=== PATIENT | male | born 1995 | race Caucasian/White ===

== ENCOUNTER 2018-01-02 16:55 | Emergency (ER) | payer MEDICAID ==
[2018-01-02 17:02] VITALS: RESP 18
[2018-01-02] MEDS ORDERED: levETIRAcetam 1,000 MG in Sodium Chloride 0.9% 100 ML IVPB STA (17:20)
[2018-01-02] MEDS ORDERED: Sodium Chloride 0.9% 1,000 ML IV STA ×3 (17:20→19:56)
[2018-01-02 17:39] LABS: BASO # 0.1 K/uL (0.0-0.2); BASO % 0.4 % (0.0-2.0); EOS # 0.5 K/uL (0.0-0.7); EOS % 2.1 % (0.0-4.0); HEMOGLOBIN 15.3 g/dL (12.0-18.0); LYMPH # 10.1 K/uL (1.0-4.3); MEAN CELL VOLUME 92.6 fl (80.0-94.0); MEAN CORPUSCULAR HEMOGLOBIN 29.4 pg (27.0-31.0); MEAN CORPUSCULAR HGB CONC 31.7 g/dL (33.0-37.0); MEAN PLATELET VOLUME 9.8 fl (7.2-11.7); MONO # 1.8 K/uL (0.0-0.8); MONO % 8.1 % (0.0-10.0); NEUT # 9.9 K/uL (1.8-7.0); NEUT % 44.4 % (50.0-75.0); RBC 5.2 Mil/uL (4.40-5.90); RED CELL DISTRIBUTION WIDTH 13.1 % (11.5-14.5); WHITE BLOOD COUNT 22.4 K/uL (4.8-10.8)
--- NOTE | 2018-01-02 17:54 | ED PDOC ---
HPI: Seizure <Garland - Last Filed: 01/04/18 14:14> <IsabelAbril - Last Filed: 01/04/18 15:06> Time Seen by Provider: 01/02/18 17:09 Chief Complaint (Nursing): Seizure Additional Complaint(s): 22 yo male pmhx seizure disorder brought in by EMS for 2 episodes of seizures this afternoon. Pt reports he was sitting at the his campus ([facility]) and start to seize. Pt reports he takes Keppra 1500mg BID but missed his doses last night and this morning. Reports feeling nauseous and vomited in the ED. Denies hitting head, bleeding from mouth, urinary or fecal incontinence. Neurologist: Dr. Coel Almaguer (Sultan Nimesh) Supervising Attending Note - Supervising Attending Note The Documented history was done by the: Physician Lpc The documented physical exam was done by the: Physician Lpc - Attestation: I have personally seen and examined this patient.: Yes I have fully participated in the care of the patient.: Yes I have reviewed all pertinent clinical information, including history, physical exam and plan: Yes <IsabelAbril Bobbi - Last Filed: 01/04/18 15:06> Past Medical History - Medical History PMH: Seizures - Surgical History Surgical History: No Surg Hx - Family History Family History: States: No Known Family Hx - Social History Current smoker - smoking cessation education provided: No Alcohol: None Drugs: Denies <Sultan Nimesh - Last Filed: 01/04/18 14:14> <Abril Hall Bobbi - Last Filed: 01/04/18 15:06> Vital Signs: Last Vital Signs Temp 98.0 F 01/03/18 01:07 Pulse 86 01/03/18 01:07 Resp 18 01/03/18 01:07 BP 117/80 01/03/18 01:07 Pulse Ox 96 01/04/18 14:16 - Home Medications Home Medications: Ambulatory Orders Medication Instructions Recorded Levetiracetam [Levetiracetam] 1,000 mg PO Q12H 01/02/18 levETIRAcetam [Keppra] 500 mg PO Q12H 01/02/18 Levetiracetam [Keppra] 1,500 mg PO BID #40 tablet 01/03/18 - Allergies Allergies/Adverse Reactions: Allergies Allergy/AdvReac Type Severity Reaction Status Date / Time No Known Allergies Allergy Verified 08/13/15 19:20 Review of Systems Constitutional: Negative for: Fever, Chills Cardiovascular: Negative for: Chest Pain Respiratory: Negative for: Cough, Shortness of Breath Gastrointestinal: Negative for: Abdominal Pain Neurological: Negative for: Confusion, Headache <Sultan Nimesh - Last Filed: 01/04/18 14:14> Physical Exam - Physical Exam Appears: Positive for: Uncomfortable Head Exam: Positive for: ATRAUMATIC, NORMAL INSPECTION, NORMOCEPHALIC ENT: Positive for: Other (No tongue laceration seen) Neck: Positive for: Normal Cardiovascular/Chest: Positive for: Regular Rate, Rhythm Respiratory: Positive for: Normal Breath Sounds. Negative for: Crackles, Wheezing Gastrointestinal/Abdominal: Positive for: Bowel Sounds, Soft. Negative for: Tenderness Extremity: Positive for: Normal ROM Neurologic/Psych: Positive for: Alert, Oriented. Negative for: Motor/Sensory Deficits <Sultan Nimesh - Last Filed: 01/04/18 14:14> - Laboratory Results Result Diagrams: 01/02/18 20:37 01/02/18 20:37 - ECG O2 Sat by Pulse Oximetry: 96 <Sultan Nimesh - Last Filed: 01/04/18 14:14> - Laboratory Results Result Diagrams: 01/02/18 20:37 01/02/18 20:37 - Critical Care Total Time (In Min): 45 <Abril Hall - Last Filed: 01/04/18 15:06> - Progress ED Course And Treament: Assessment: 22 yo male hx seizure disorder presents to ED for seizure episodes Plan: Keppra 1500mg Klonopin 1 mg Zofran 4mg IVP IV NS 1000CC BOLUS cbc cmp cpk keppra level UA finger stick glucose Attempt was made to contact w/ pt's neurologist Dr. Almaguer. Message was left with the answering service to contact [facility] ED. Case d/w ED attending physician Dr. Hall (Sultan Nimesh) Medical Decision Making <Sultan Nimesh - Last Filed: 01/04/18 14:14> <Abril Hall - Last Filed: 01/04/18 15:06> Medical Decision Makin:00 Case discussed with Mary ([employer] @ Dr. Krishnamurthy office) who discussed case with Dr. Sandoval, recommends Keppra 1500 mg IV and Clonazepam 1 mg PO now, then Keppra 1500 mg PO @ 10:30 PM. If feeling better and tolerating PO, can be discharged home. (Abril Hall) Disposition - Disposition Disposition Time: 01:15 (Pt was discharged on 01/03/18) <Sultan Nimesh - Last Filed: 01/04/18 14:14> - Disposition Disposition: Transfer of Care Disposition Time: 21:00 Patient Signed Over To: Avi Tillman III <Abril Hall - Last Filed: 01/04/18 15:06> - Clinical Impression Clinical Impression: Generalized seizure - Disposition Condition: STABLE Additional Instructions: See your neurologist as directed. Take your keppra medication everyday 2x daily. Return to ER for any fever, worse or new symptoms. Do not drive a car until cleared by your neurologist. Prescriptions: Levetiracetam [Keppra] 1,500 mg PO BID #40 tablet Instructions: Epilepsy (ED), Recurrent Seizures in Adults (ED) Forms: [employer] (Greenlandic)
[2018-01-02] MEDS ORDERED: levETIRAcetam 500 MG in Sodium Chloride 0.9% 100 ML IVPB STA (18:03)
[2018-01-02 18:17] LABS: ALB/GLOB RATIO 1.1 (1.0-2.1); ALBUMIN 5.5 g/dL (3.5-5.0); ALT/SGPT 18 U/L (21-72); AST/SGOT 31 U/L (17-59); BLOOD UREA NITROGEN 20 mg/dl (9-20); CALCIUM 10.5 mg/dL (8.4-10.2); GFR AFRICAN-AMERICAN > 60; GFR NON-AFRICAN AMERICAN > 60
[2018-01-02 18:41] LABS: ABG ALLEN TEST YES; ARTERIAL BLOOD GAS HCO3 19.1 mmol/L (21-28); ARTERIAL BLOOD GAS O2 SAT 99.1 % (95-98); ARTERIAL BLOOD GAS PCO2 36 mm/Hg (35-45); ARTERIAL BLOOD GAS PH 7.31 (7.35-7.45); ARTERIAL BLOOD GAS PO2 122 mm/Hg (80-100); ARTERIAL BLOOD GAS TCO2 19.2 mmol/L (22-28)
[2018-01-02 20:41] LABS: BASO # 0.1 K/uL (0.0-0.2); BASO % 0.5 % (0.0-2.0); EOS % 0.1 % (0.0-4.0); HEMOGLOBIN 12.8 g/dL (12.0-18.0); LYMPH # 1.8 K/uL (1.0-4.3); MEAN CELL VOLUME 87.9 fl (80.0-94.0); MEAN CORPUSCULAR HEMOGLOBIN 29.2 pg (27.0-31.0); MEAN CORPUSCULAR HGB CONC 33.2 g/dL (33.0-37.0); MEAN PLATELET VOLUME 8.8 fl (7.2-11.7); MONO # 1.4 K/uL (0.0-0.8); MONO % 7.1 % (0.0-10.0); NEUT # 16.4 K/uL (1.8-7.0); NEUT % 83.3 % (50.0-75.0); PLATELET COUNT 225 K/uL (130-400); RBC 4.37 Mil/uL (4.40-5.90); RED CELL DISTRIBUTION WIDTH 12.8 % (11.5-14.5); WHITE BLOOD COUNT 19.7 K/uL (4.8-10.8)
[2018-01-02 20:51] LABS: BLOOD UREA NITROGEN 20 mg/dl (9-20); CALCIUM 8.7 mg/dL (8.4-10.2); GFR AFRICAN-AMERICAN > 60; GFR NON-AFRICAN AMERICAN > 60
--- NOTE | 2018-01-02 21:15 | ED PDOC ---
- Laboratory Results Result Diagrams: 01/02/18 20:37 01/02/18 20:37 - ECG O2 Sat by Pulse Oximetry: 98 Medical Decision Making Medical Decision Making: recd 9pm pending repeat keppra dose at 1030p, re-eval Disposition - Disposition Forms: [facility] [facility] (Slovak)
[2018-01-02 21:26] LABS: LYMPHOCYTE 11 % (20-50); MONOCYTE 4 % (0-10); NEUTROPHIL 84 % (42-75); PLASMACYTES 1 (0-0); PLATELET ESTIMATE NORMAL (NORMAL); TOTAL CELLS COUNTED 100
[2018-01-02 21:40] LABS: SQUAMOUS EPITHIAL < 1 /hpf (0-5); URINE BACTERIA RARE (<OCC); URINE BILIRUBIN NEGATIVE (NEGATIVE); URINE BLOOD SMALL (NEGATIVE); URINE CLARITY SLIGHTY-CLOUDY (Clear); URINE COLOR YELLOW (YELLOW); URINE GLUCOSE (UA) NEG (Normal); URINE LEUKOCYTE ESTERASE NEG Leu/uL (Negative); URINE NITRATE NEGATIVE (NEGATIVE); URINE PROTEIN 100 mg/dL (NEGATIVE); URINE UROBILINOGEN 0.2-1.0 mg/dL (0.2-1.0)
[2018-01-02 22:24] VITALS: PULSE 86
[2018-01-03 01:09] VITALS: BP 117/80; TEMP 98
[2018-01-03 09:19] VITALS: O2SAT 96
== END 2018-01-03 01:34 | disposition home or self-care (01) ==
LOC: H.ER 16:55
DX: G40.909 Epilepsy, unspecified, not intractable, without status epilepticus (principal)
CPT/HCPCS: 36600; 80048; 80053; 80299; 81003; 82550; 82803; 82948; 85025; 96365; 96375; 99285; J1953; J2405; J7040

== ENCOUNTER 2019-04-06 08:38 | Emergency (ER) | payer MEDICAID ==
[2019-04-06] MEDS ORDERED: Sodium Chloride 0.9% 1,000 ML IV STA (08:55)
--- NOTE | 2019-04-06 09:06 | ED PDOC ---
HPI: Seizure Time Seen by Provider: 04/06/19 08:42 Chief Complaint (Nursing): Seizure Chief Complaint (Provider): Seizure History Per: Patient History/Exam Limitations: no limitations Additional Complaint(s): 24 y/o male with a history of seizures presents to the ED due to a seizure. Patient states he was at school taking a final feeling nauseas when all of the sudden he blacked out. He reports he was unclear how long the seizure lasted and stated he takes Keppra for his seizures. Patient states he is fasting and the last time he ate was at 3am today. He states he was feeling nausea and is stressing over finals. Patient denies biting his tongue or any other injuries at this time. No numbness, tingles, weakness, dizziness, abd pain, chest pain, fever, drugs, etoh. Per EMS, pt. seizure lasted 1 min. Last seizure was in January,. Is compliant with his meds and took it today. PMD: none provided Neurologist: not around here Past Medical History Reviewed: Historical Data, Nursing Documentation, Vital Signs Vital Signs: Last Vital Signs Temp 99.7 F H 04/06/19 08:49 Pulse 112 H 04/06/19 08:49 Resp 18 04/06/19 08:49 BP 119/77 04/06/19 08:49 Pulse Ox 98 04/06/19 08:49 Primary Care Provider: Sebastián Guillen - Medical History PMH: Seizures - Surgical History Surgical History: No Surg Hx - Family History Family History: States: Unknown Family Hx - Home Medications Home Medications: Ambulatory Orders Medication Instructions Recorded Levetiracetam 1,000 mg PO Q12H 01/02/18 levETIRAcetam [Keppra] 500 mg PO Q12H 01/02/18 Levetiracetam [Keppra] 1,500 mg PO BID #40 tablet 01/03/18 - Allergies Allergies/Adverse Reactions: Allergies Allergy/AdvReac Type Severity Reaction Status Date / Time No Known Allergies Allergy Verified 04/06/19 08:49 Review of Systems ROS Statement: Except As Marked, All Systems Reviewed And Found Negative Neurological: Positive for: Seizures Physical Exam - Reviewed Nursing Documentation Reviewed: Yes Vital Signs Reviewed: Yes - Physical Exam Appears: Positive for: Non-toxic, No Acute Distress Head Exam: Positive for: NORMOCEPHALIC (Left forehead hematoma 3cm, mild tender; no lacerations.) Skin: Positive for: Normal Color, Warm, Dry Eye Exam: Positive for: EOMI, Normal appearance, PERRL ENT: Positive for: Normal ENT Inspection, Other (no tongue bites, loose teeth) Neck: Positive for: Normal, Painless ROM, Supple Cardiovascular/Chest: Positive for: Regular Rate, Rhythm. Negative for: Murmur Respiratory: Positive for: Normal Breath Sounds. Negative for: Wheezing Gastrointestinal/Abdominal: Positive for: Normal Exam, Soft. Negative for: Tenderness Back: Positive for: Normal Inspection. Negative for: L CVA Tenderness, R CVA Tenderness Extremity: Positive for: Normal ROM. Negative for: Tenderness Neurological/Psych: Positive for: Awake, Alert, Normal Tone, Oriented (x3), general office dispatcher II-XII. Negative for: Motor/Sensory Deficits - Laboratory Results Result Diagrams: 04/06/19 09:00 04/06/19 09:00 Interpretation Of Abn Labs: no acute - ECG ECG: Positive for: Interpreted By Me, Viewed By Me ECG Rhythm: Positive for: Normal QRS, Normal ST Segment, Sinus Rhythm O2 Sat by Pulse Oximetry: 98 - CT Scan/US ct Other Rad Studies (CT/US): Read By Radiologist Other Rad Interpretation: no acute - Progress ED Course And Treament: 1041: Stable. AAOx3. Pain free. Tolerated PO. Fu with neurologist. Dr. Paulino and pt. neurologist, Dr. Almaguer, paged. 1055: Stable. Spoke with Lynn Constantino for Dr. Almaguer. Wants pt. to get 1gm ludwig and dc. He has had breakthroughs in the past and this is what they give him. Medical Decision Making Medical Decision Making: Time: 853 Initial Impression: Initial Plan: -CT head -EKG -Alcohol serum -CMP -Drug screen -Troponin -CBC -Glucose -Sodium chloride Scribe Attestation: Documented by Merlene Martel, acting as a scribe for Duane Velasquez Provider Scribe Attestation: All medical record entries made by the Scribe were at my direction and personally dictated by me. I have reviewed the chart and agree that the record accurately reflects my personal performance of the history, physical exam, medical decision making, and the department course for this patient. I have also personally directed, reviewed, and agree with the discharge instructions and disposition. Disposition - Clinical Impression Clinical Impression: Generalized seizure - Patient ED Disposition Is Patient to be Admitted: No Counseled Patient/Family Regarding: Studies Performed, Diagnosis, Need For Followup - Disposition Referrals: [facility] [Outside] - 04/09/19 Disposition: Routine/Home Disposition Time: 10:57 Condition: STABLE Additional Instructions: Return if not better in 3 days. Instructions: Seizures, Adult (DC) Forms: [facility] (Lithuanian), [facility] ED School/Work Excuse
[2019-04-06 09:30] LABS: BASO % 0.5 % (0.0-2.0); EOS # 0.2 K/uL (0.0-0.7); EOS % 2.9 % (0.0-4.0); LYMPH # 1.2 K/uL (1.0-4.3); LYMPH % 13.5 % (20.0-40.0); MEAN CELL VOLUME 87.2 fl (80.0-94.0); MEAN CORPUSCULAR HEMOGLOBIN 29.3 pg (27.0-31.0); MEAN CORPUSCULAR HGB CONC 33.5 g/dL (33.0-37.0); MEAN PLATELET VOLUME 8.5 fl (7.2-11.7); MONO # 0.8 K/uL (0.0-0.8); MONO % 9.1 % (0.0-10.0); NEUT # 6.4 K/uL (1.8-7.0); NRBC % 0.1 % (0.0-0.0); RBC 4.77 Mil/uL (4.40-5.90); RED CELL DISTRIBUTION WIDTH 12.8 % (11.5-14.5); WHITE BLOOD COUNT 8.6 K/uL (4.8-10.8)
--- NOTE | 2019-04-06 09:31 | CT ---
Date of service: 04/06/2019 PROCEDURE: CT HEAD WITHOUT CONTRAST. HISTORY: headache COMPARISON: None available. TECHNIQUE: Axial computed tomography images were obtained through the head/brain without intravenous contrast. Radiation dose: Total exam DLP = 787.92 mGy-cm. This CT exam was performed using one or more of the following dose reduction techniques: Automated exposure control, adjustment of the mA and/or kV according to patient size, and/or use of iterative reconstruction technique. FINDINGS: HEMORRHAGE: No intracranial hemorrhage. BRAIN: Normal yusuf-white matter differentiation and density are appreciated throughout the cerebrum and cerebellum with the brainstem appearing unremarkable as well. There is no mass effect. There is no suspicious extra-axial fluid collection and the midline brain anatomy appears diffusely unremarkable. VENTRICLES: Unremarkable. No hydrocephalus. CALVARIUM: Unremarkable. PARANASAL SINUSES: Limited sinus disease seen the bilateral ethmoid and sphenoid sinuses. MASTOID AIR CELLS: Unremarkable as visualized. No inflammatory changes. OTHER FINDINGS: None. IMPRESSION: Unremarkable unenhanced head CT as discussed above. Incidental limited sinus disease bilateral ethmoid and sphenoid sinuses.
[2019-04-06 09:40] LABS: ALB/GLOB RATIO 1.2 (1.0-2.1); ALBUMIN 4.5 g/dL (3.5-5.0); ALT/SGPT 23 U/L (21-72); AST/SGOT 22 U/L (17-59); BLOOD UREA NITROGEN 18 mg/dl (9-20); CALCIUM 9.3 mg/dL (8.4-10.2); GFR NON-AFRICAN AMERICAN > 60
[2019-04-06] MEDS ORDERED: levETIRAcetam 1,000 MG in Sodium Chloride 0.9% 100 ML IVPB STA (10:54)
[2019-04-06 12:00] LABS: BARBITURATES, UR NEGATIVE (NEGATIVE); BENZODIAZEPINES, UR NEGATIVE (NEGATIVE); OPIATES, UR NEGATIVE (NEGATIVE); PHENCYCLIDINE, UR NEGATIVE (NEGATIVE)
[2019-04-06 12:32] VITALS: BP 102/70; PULSE 80; RESP 181; TEMP 98.1; O2SAT 99
--- NOTE | 2019-04-06 13:32 | CARD ---
APPROVED REPORT Date of service: 04/06/2019 EKG Measurement Heart [id number] <Conclusion> Normal sinus rhythm Normal Electrocardiogram
== END 2019-04-06 12:37 | disposition home or self-care (01) ==
LOC: H.ER 08:38
DX: R56.9 Unspecified convulsions (principal)
CPT/HCPCS: 70450; 80053; 80320; 80324; 80345; 80346; 80349; 80353; 80358; 80361; 82948; 83992; 84484; 85025; 93005; 96361; 96365; 99285; J1953; J7030